=== PATIENT | female | born 1990 | race Two or more races ===

== ENCOUNTER → 2017-12-15 | Outpatient (CLI) | payer OTHER | LOC: FIMAGING 07:34 | PROVIDERS: ATTEND Obstetrics & Gynecology | DX: O09.812 Supervision of pregnancy resulting from assisted reproductive technology, second trimester (principal); O26.02 Excessive weight gain in pregnancy, second trimester; Z3A.21 21 weeks gestation of pregnancy ==

== ENCOUNTER → 2018-01-08 | Outpatient (CLI) | payer OTHER | LOC: FIMAGING 08:33 | PROVIDERS: ATTEND Obstetrics & Gynecology | DX: Z34.82 Encounter for supervision of other normal pregnancy, second trimester (principal); Z3A.24 24 weeks gestation of pregnancy ==

== ENCOUNTER 2018-02-20 08:02 | Emergency (ER) | payer OTHER ==
[2018-02-20 08:09] VITALS: BP 111/69
--- NOTE | 2018-02-20 08:21 | EDPHY ---
H & P Time Seen by Provider: 02/20/18 08:21 HPI/ROS: Chief complaint. Upper respiratory symptom HPI. 27-year-old female who is 29 weeks presents with 2 days of slight cough, nasal congestion and slight burning sore throat. No fever. No recent travel or known exposure to Infectious Disease. She does not have any abdominal pain or vaginal bleeding. No rash. No urinary symptoms. She is normally healthy other than low thyroid. Patient is 1/para 0. ROS 10 systems were reviewed and negative with the exception of the elements mentioned in the history of present illness Past Medical/Surgical History: Hypothyroid Social History: , nonsmoker, no alcohol Smoking Status: Never smoked Physical Exam: General Appearance: Alert well-developed female mild distress vitals are stable Eyes:[ Pupils equal and round no pallor or injection]. ENT, tympanic membranes are normal. Pharynx without injection. Mucous membranes are moist Patient and her refuse heart, lung, abdominal exam Musculoskeletal: [Neck is supple nontender.] Extremities [ symmetrical, full range of motion.] Psychiatric:[ Patient is oriented X 3, there is no agitation.] Constitutional: Initial Vital Signs Temperature (C) 36.5 C 02/20/18 08:06 Heart Rate 80 02/20/18 08:06 Respiratory Rate 17 02/20/18 08:06 Blood Pressure 111/69 02/20/18 08:06 O2 Sat (%) 97 02/20/18 08:06 O2 Delivery Mode Room Air Allergies/Adverse Reactions: No Known Allergies Allergy (Unverified 02/20/18 08:05) Home Medications: Medication Instructions Recorded Vits96/Iron Fum/Folic 02/20/18 Synthroid 02/20/18 Medical Decision Making ED Course/Re-evaluation: Uzbek consulting systems engineer is used. Assessment and discharge instructions and plan including criteria for return and importance of follow-up are translated through the consulting systems engineer Differential Diagnosis: I believe this is upper respiratory infection. No evidence for otitis media or pharyngitis. Unlikely this represents pneumonia Departure - Departure Disposition: Home, Routine, Self-Care Clinical Impression: Upper respiratory infection Qualifiers: URI type: unspecified URI Qualified Code(s): J06.9 - Acute upper respiratory infection, unspecified Condition: Good Instructions: Upper Respiratory Infection (ED) Additional Instructions: Drink plenty of fluids and stay hydrated. May use Tylenol for any fever. Avoid aspirin or ibuprofen Return for worsening symptoms. Recheck in 2-3 days if not improved Referrals: NONE *PRIMARY CARE P,. [Primary Care Provider] - As per Instructions Lainey Orona MD [[facility] [place] Primary Care Provider] - 2-3 days, if not improved
== END 2018-02-20 09:00 | disposition home or self-care (01) ==
DX: J06.9 Acute upper respiratory infection, unspecified (principal)

== ENCOUNTER 2018-02-22 12:34 | Emergency (ER) | payer OTHER ==
[2018-02-22 12:39] VITALS: BP 114/72
--- NOTE | 2018-02-22 12:58 | EDPHY ---
H & P Stated Complaint: sore throat and ear pain x 3 days, 28 weeks preg Time Seen by Provider: 02/22/18 12:45 HPI/ROS: CHIEF COMPLAINT: Throat and ears feel worse HISTORY OF PRESENT ILLNESS: 27-year-old female 28 weeks , , seen the ER 2 days ago for complaints of URI symptoms for the past 4 days, returns to the ER complaining of worsening sore throat and bilateral otalgia. No fever no chills. No change in voice. No respiratory complaints such as cough. No dyspnea. No chest pain. No abdominal pain. Baby moving as normal. No urinary complaints. No vaginal discharge or bleeding. No Headache. No nuchal rigidity REVIEW OF SYSTEMS: 10 systems reviewed and negative with the exception of the elements mentioned in the history of present illness PAST MEDICAL & SURGICAL HISTORY: 20 weeks SOCIAL HISTORY: nonsmoker PHYSICAL EXAM (Prior to examination, patient consented to physical exam, hands were washed and my usual and customary physical exam procedures followed) 1) GENERAL: Well-developed, well-nourished, alert and oriented. Appears to be in no acute distress. Exam with at bedside. 2) HEAD: Normocephalic, atraumatic 3) HEENT: Pupils equal, round, reactive to light bilaterally. Sclera anicteric. Nasopharynx, oropharynx, clear, no lesions. Moist Mucous membranes. No tonsillar enlargement or exudate. Posterior oropharynx is erythematous. right ear: Bulging erythematous tympanic membrane. Right external auditory canals clear. Right mastoid nontender non boggy. Left ear: Nonbulging non erythematous tympanic membrane with clear external auditory canal, left mastoid nontender non boggy. 4) NECK: Full range of motion, no meningeal signs. 5) LUNGS: Clear auscultation bilaterally, no wheezes, no rhonchi, no retractions. 6) HEART: Regular rate and rhythm, no murmur, no heave, no gallop. 7) ABDOMEN: No guarding, no rebound, no focal tenderness, negative McBurney's, negative Puckett's, negative Rovsing's, negative peritoneal sign, 8) MUSCULOSKELETAL: Moving all extremities, no focal areas of tenderness, no obvious trauma. No peripheral edema or discoloration. 9) BACK: No CVA tenderness, no midline vertebral tenderness, no fluctuance, no step-off, no obvious trauma, no visual or palpable abnormality. 10) SKIN: No rash, no petechiae. 11) Psychiatric: Patient is oriented X 3, there is no agitation. DIFFERENTIAL DIAGNOSIS: In no particular order including but not limited to strep pharyngitis, otitis media, otitis externa, mastoiditis, meningitis - Personal History LMP (Females 10-55): - Medical/Surgical History Hx Asthma: No Hx Chronic Respiratory Disease: No Hx Diabetes: No Hx Cardiac Disease: No Hx Renal Disease: No Hx Cirrhosis: No Hx Alcoholism: No Hx HIV/AIDS: No Hx Splenectomy or Spleen Trauma: No Other PMH: hypothyroid - Social History Smoking Status: Never smoked Constitutional: Initial Vital Signs Temperature (C) 36.5 C 02/22/18 12:36 Heart Rate 101 H 02/22/18 12:36 Respiratory Rate 18 02/22/18 12:36 Blood Pressure 114/72 02/22/18 12:36 O2 Sat (%) 97 02/22/18 12:36 O2 Delivery Mode Room Air Allergies/Adverse Reactions: No Known Allergies Allergy (Verified 02/22/18 12:35) Home Medications: Medication Instructions Recorded Vits96/Iron Fum/Folic 02/20/18 Synthroid 02/20/18 Azithromycin [Zithromax] 500 mg PO DAILY #1 packet 02/22/18 Medical Decision Making ED Course/Re-evaluation: I reviewed the patient's old medical records. Doubt meningitis. Does have evidence of otitis media without evidence of rupture of tympanic membrane. Will administer trial of azithromycin oral antibiotic. She has no urinary complaints and denies vaginal bleeding or discharge. Plan will be discharge, close follow-up with her OBGYN. She feels comfortable being discharged. All questions and concerns addressed by myself. Care of patient under supervision of secondary supervising physician Dr Crawford . Departure - Departure Disposition: Home, Routine, Self-Care Clinical Impression: Acute otitis media Qualifiers: Otitis media type: suppurative Laterality: right Recurrence: not specified as recurrent Spontaneous tympanic membrane rupture: without spontaneous rupture Qualified Code(s): H66.001 - Acute suppurative otitis media without spontaneous rupture of ear drum, right ear Condition: Good Instructions: Ear Infection (ED) Additional Instructions: Return to the emergency department immediately for change in breathing habits, change in voice, change in swallowing habits, change in mental status, or any other symptoms that concern you. Referrals: [facility],. [Clinic] - As per Instructions Prescriptions: Azithromycin [Zithromax] 500 mg PO DAILY #1 packet
== END 2018-02-22 13:08 | disposition home or self-care (01) ==
DX: H66.91 Otitis media, unspecified, right ear (principal); J02.9 Acute pharyngitis, unspecified; E03.9 Hypothyroidism, unspecified; Z3A.28 28 weeks gestation of pregnancy

== ENCOUNTER 2018-05-05 10:34 | Inpatient (IN) | payer OTHER ==
[2018-05-05] MEDS ORDERED: LR 1,000 ML IV PRN (16:01)
[2018-05-05] MEDS ORDERED: TERBUTALINE SULFATE 1 MG/ML VIAL IV PRN (16:01)
[2018-05-05] MEDS ORDERED: OXYTOCIN/RINGERS LACTATE 1,000 ML IV PRN (16:01)
[2018-05-05] MEDS ORDERED: OLIVE OIL 118 ML BTL MISC PRN (16:01)
[2018-05-05] MEDS ORDERED: AMMONIA AROMATIC 1 EACH AMP IH PRN (16:01)
[2018-05-05] MEDS ORDERED: MISOPROSTOL 200 MCG TAB PO PRN (16:01)
[2018-05-05] MEDS ORDERED: IBUPROFEN 600 MG TAB PO PRN (16:01)
[2018-05-05] MEDS ORDERED: LIDOCAINE 1% 300 MG/30 ML SDV SC PRN (16:01)
[2018-05-05] MEDS ORDERED: EPSOM SALT 454 GM TP PRN (16:01)
[2018-05-05 16:54] LABS: PLATELET COUNT 295 10^3/uL (150-400)
[2018-05-05] MEDS ORDERED: BUPIVACAINE 0.25% 10 ML SDV ONE ×2 (17:14→18:17)
[2018-05-05] MEDS ORDERED: PHENYLEPHRINE HCL 100 MCG/ML SYR ONE (17:50)
[2018-05-05] MEDS ORDERED: METOCLOPRAMIDE 10 MG/2 ML VIAL IVP PRN (18:54)
[2018-05-05] MEDS ORDERED: ONDANSETRON 4 MG/2 ML VIAL IVP PRN (18:54)
[2018-05-05] MEDS ORDERED: NALOXONE HCL 0.4 MG/ML INJ IVP PRN (18:54)
[2018-05-05] MEDS ORDERED: PHENYLEPHRINE HCL 100 MCG/ML SYR IVP PRN (18:54)
--- NOTE | 2018-05-05 18:57 | PREANESOB ---
Obstetric Pre-Anesthesia Info - General Info : 1 Para: 0 LIZ: 04/23/18 Gestational Age: 41 week(s) and 5 day(s) - Labor Status Indications for Labor Analgesia: Pain Control Labor Epidural: Proposed (Patient can not be examined without epidural secondary to pain.) Anesthesia Allergies/Adverse Reactions: Allergy/AdvReac Type Severity Reaction Status Date / Time No Known Allergies Allergy Verified 02/22/18 12:35 Home Medications: Medication Instructions Recorded Vits96/Iron Fum/Folic 02/20/18 Synthroid 02/20/18 Azithromycin [Zithromax] 500 mg PO DAILY #1 packet 02/22/18 Visit Medications: Generic Name Dose Route Start Last Admin Trade Name Freq PRN Reason Stop Dose Admin Ammonia (Aromatic Spirit) 1 each 05/05/18 16:01 Ammonia Aromatic IH 05/15/18 16:00 ONCE PRN Fainting Lactated Ringer's 1,000 mls @ 0 mls/hr 05/05/18 16:01 Lr IV 05/06/18 16:00 PRN PRN SEE PROTOCOL CONDITIONS Protocol Per Protocol Oxytocin/Lactated Ringer's 1,000 mls @ 0 mls/hr 05/05/18 16:01 Pitocin 20 Units/Lr (Premix) IV PRN PRN Post bleeding Per Protocol Lactated Ringer's 500 mls @ 0 mls/hr 05/05/18 19:00 Lr IV 11/01/18 18:59 CONT ZANE As Directed Ibuprofen 600 mg 05/05/18 16:01 Motrin PO ONCE PRN post , pain Lidocaine HCl 300 mg 05/05/18 16:01 Lidocaine Hcl 1% SC 11/01/18 16:00 ONCE PRN episiotomy Magnesium Sulfate 454 gm 05/05/18 16:01 Epsom Salt TP 11/01/18 16:00 Q1H PRN perineal discomfort Misoprostol 800 - 1,000 mcg 05/05/18 16:01 Cytotec PO 11/01/18 16:00 ONCE PRN Vaginal Atony/Bleeding [place] Oil 118 ml 05/05/18 16:01 Sweet Oil MISC 11/01/18 16:00 ONCE PRN perineal massage Terbutaline Sulfate 0.25 mg 05/05/18 16:01 Brethine IV 11/01/18 16:00 ONCE PRN Tachysystole Discontinued Medications Generic Name Dose Route Start Last Admin Trade Name Julio PRN Reason Stop Dose Admin Bupivacaine HCl Confirm 05/05/18 17:14 Sensorcaine 0.25% Sdv Administered 05/05/18 17:15 Dose 10 ml .ROUTE .STK-MED ONE Bupivacaine HCl Confirm 05/05/18 18:17 Sensorcaine 0.25% Sdv Administered 05/05/18 18:18 Dose 10 ml .ROUTE .STK-MED ONE Phenylephrine HCl Confirm 05/05/18 17:50 Neosynephrine Administered 05/05/18 17:51 Dose 1,000 mcg .ROUTE .STK-MED ONE - Vital Signs Height/Weight (Nursing): Height 153 cm Weight 89.358 kg Labs: 05/05/18 16:37 Patient ABO/Rh O POSITIVE 05/05/18 16:37
[2018-05-05] MEDS ORDERED: OLIVE OIL 118 ML BTL ONE (19:00)
[2018-05-05] MEDS ORDERED: LIDOCAINE 1% 300 MG/30 ML SDV ONE (19:00)
[2018-05-05] MEDS ORDERED: fentaNYL 2MCG/ML/BUP 0.1% RTU 100 ML EP SCH (19:00)
[2018-05-05] MEDS ORDERED: LR 500 ML IV SCH (19:00)
[2018-05-05] MEDS ORDERED: AMMONIA AROMATIC 1 EACH AMP IH ONE (19:01)
[2018-05-05] MEDS ORDERED: OXYTOCIN 10 UNIT/ML VIAL ONE (19:01)
[2018-05-05] MEDS ORDERED: TERBUTALINE SULFATE 1 MG/ML VIAL ONE (19:01)
[2018-05-05] MEDS ORDERED: MISOPROSTOL 200 MCG TAB ONE (19:01)
--- NOTE | 2018-05-05 19:16 | GHP ---
[f rep st] PREOP HISTORY AND PHYSICAL DATE OF ADMISSION: 05/05/2018 ADMITTING DIAGNOSIS: Intrauterine at 40 and 6/7 weeks' gestation with borderline oligo pro dromal contractions, for augmentation of labor. HISTORY OF PRESENT ILLNESS: The patient is a 27-year-old 1, para 0, who has an IVF . She had a embryo transfer on August 08, 2017, giving an EDC of 04/29/2018, and that was also con firmed by a 6-week ultrasound. She has had good care at [facility] since registra tion at 18 weeks' gestation. Her course is complicated by IVF . This was original ly a twin , but had a demise of 1 twin very early and has been a pierce since she was in our care. She has had level 2 normal ultrasound, echo was normal, and normal monitoring this p regnancy. She has hypothyroidism on Synthroid. She does not tolerate vaginal exams well. Had gener al anesthesia for her IVF conception. She began having increased back pain over the last c ouple nights. She was evaluated at [facility] today for her normal scheduled exam. She adam d a reactive category 1 nonstress test. Ultrasound showed borderline fluid with a total CHANI of 5.6, MVP was 3.9 cm, baby is cephalic. The patient was offered induction augmentation of labor versus exp ectant management. The patient wished to have induction of labor. However, patient has extreme diff iculty with vaginal exams. She was sent to labor and delivery rate, originally attempted to do a vag inal exam with nitrous to quantitate her cervical dilation and make a plan for induction. She was no t able to tolerate this after several attempts, so we decided to admit for induction of labor. She r eceived an epidural, and I was now successfully able to examine her. She is 4 cm, 90%, -2 with a bul ging bag of water. Baby is cephalic. She has had irregular contractions during the afternoon, so eulogio keyes is in probably early prodromal labor. PAST MEDICAL HISTORY: The patient has no past medical history. She is a primigravida. PAST GYNECOLOGICAL HISTORY: She had menarche at age 15, interval irregular every 2-3 months, length 7 days. She has irregular cycles. Does not tolerate intercourse because of dyspareunia. She concei manisha this with her 2nd round of IVF, and she was under anesthesia for both her egg retrieval as well as her transfer. No other gynecological problems. She has had Pap smears under anesthesia. They have been negative. PAST SURGICAL HISTORY: No surgical history. ALLERGY HISTORY: She has no known drug allergies. CURRENT MEDICATIONS: Include Synthroid 50 mcg daily on weekdays, 75 on weekends. She is on vitamins with DHA. SOCIAL HISTORY: She is to her , Abiel. She is a [id number] mom. He is a studen t at . They are from [place]. Uzbek is their primary language. She uses him as a translato r and she declines a supplemental greenhouse grower. LABORATORY DATA: She is O positive. Antibody negative. RPR nonreactive. Rubella immune. Hepatiti s negative. HIV negative. Standard panel normal. TSH normal. Urine drug screen negative. Pap nor mal in June 2017 under anesthesia. Gonorrhea and chlamydia negative. Verifi was declined. Pre-gen etic screening was negative. AFP was negative. 1-hour GTT 156, 3-hour GTT was negative, and she is G BS negative, and varicella immune. FAMILY HISTORY: Noncontributory. OBJECTIVE: Today she is afebrile. Vital signs are stable. heart tones are 140s, reactive, mo derate variability, category 1-2. Has had episodes of variable irregular contractions. Cervix 4 cm, 90%, -2. The patient will be admitted for active labor. May need labor augmentation with Pitocin and/or AROM. I will let the patient rest after her original exam and her epidural, and will reassess in a couple hours. status is reassuring. /[id number]/MODL
--- NOTE | 2018-05-05 22:35 | OBPROG ---
Labor Progress Note Assessment/Plan: Assessment: 27 y/o @ 40 6/7 weeks in labor now comfortable with her epidural Plan: Good cervical change and overall status is reassuring. 05/05/18 22:30 Subjective/Intrapartum Course: 05/05/18 22:27 Pt is comfortable with her epidural. She has been resting. Objective: 05/05/18 16:37 Patient ABO/Rh O POSITIVE 05/05/18 16:37 - SVE Dilation (cm): 6 Effacement (%): 90 Station: -1 Membranes: AROM Amniotic Fluid Color: Clear - Contraction Pattern Assessment Current Contraction Pattern: Regular (Q 3-4) - FHR Assessment Lama FHR (bpm): 140 FHR Pattern Variability: Moderate FHR Category: 1 (occ early decelerations) - Procedures Non-surgical Procedures: Amniotomy - AP Antepartum Course: 05/05/18 22:28 IVF Hyporhyroidism Oxytocin Orders Assessment - Pre-Induction/Augmentation Assessment Gestational Age: 41 week(s) and 5 day(s) ICD10 Worksheet Patient Problems: Problems Problem Status Onset Normal labor Acute - ICD10 Problem Qualifiers (1) Normal labor
[2018-05-06] MEDS ORDERED: LR 500 ML IV PRN (01:04)
[2018-05-06] MEDS ORDERED: OXYTOCIN/RINGERS LACTATE 500 ML IV SCH (01:30)
[2018-05-06] MEDS ORDERED: NS IV ONE (08:10)
[2018-05-06] MEDS ORDERED: AZITHROMYCIN IV ONE (08:10)
[2018-05-06] MEDS ORDERED: ceFAZolin 2 GM/DEXTROSE 100 ML IV ONE (08:12)
--- NOTE | 2018-05-06 08:27 | OBPROG ---
Labor Progress Note Assessment/Plan: Assessment: 27 y/o @ 41 weeks in labor now with intolerance to labor, prolonged second stage of labor and arrest of descent Plan: Reviewed the strip revealing intermittent late decels since 0230 this am when pt progressed to complete Pt has been pushing for the last 3 hours with minimal descent of head; upon exam this am suspect OP presentation Pitocin was turned off as soon as I saw the strip and there continues to be recurrent late decels Recommend proceeding to OR for PCS secondary to intolerance to labor, prolonged second stage of labor and arrest or descent Pt and declined using an community relations director to go over surgical consents Discussed R/B/A of PCS including but not limited to bleeding, infection and damage to surrounding organs Pt is aware of the risks and wants to proceed with surgery at this time Abx sr risk management consultant to OR; will add Azithro since pt has been ruptured to decrease risk of infection SCDs for DVT prophylaxis 05/06/18 08:31 Subjective/Intrapartum Course: 05/05/18 22:27 Pt is comfortable with her epidural. She has been resting. 05/06/18 08:28 Pt has been pushing and feels pain in her back. She is also c/o feeling dizzy. Objective: 05/05/18 16:37 Patient ABO/Rh O POSITIVE 05/05/18 16:37 - SVE Dilation (cm): 10 Effacement (%): 100 Station: +1 (with caput; suspect OP) Membranes: AROM Amniotic Fluid Color: Clear - Contraction Pattern Assessment Current Contraction Pattern: Regular (Q 3-4) - FHR Assessment Lama FHR (bpm): 160 FHR Pattern Variability: Moderate FHR Category: 2 (Recurrent late decels with kenya to 120 bpm x 60 seconds) - Procedures Non-surgical Procedures: Amniotomy - AP Antepartum Course: 05/05/18 22:28 IVF Hypothyroidism Oxytocin Orders Assessment - Pre-Induction/Augmentation Assessment Gestational Age: 41 week(s) and 5 day(s) ICD10 Worksheet Patient Problems: Problems Problem Status Onset Normal labor Acute
[2018-05-06] MEDS ORDERED: AZITHROMYCIN IV 500 MG in NS 250 ML IV ONE ×2 (08:28→08:30)
[2018-05-06] MEDS ORDERED: morphINE PF 5 MG/10 ML INJ ONE (08:40)
[2018-05-06] MEDS ORDERED: fentaNYL 100 MCG/2 ML INJ ONE (08:40)
[2018-05-06] MEDS ORDERED: SODIUM BICARBONATE 10 MEQ/10 ML SYR IVP ONE (08:42)
[2018-05-06] MEDS ORDERED: LIDO/EPI 2% **for epidural** 20 ML SDV ONE (08:42)
[2018-05-06] MEDS ORDERED: CITRIC ACID/SODIUM CITRATE 30 ML UDCUP PO ONE (09:16)
[2018-05-06] MEDS ORDERED: LABETALOL HCL 5 MG/ML 20 ML MDV IVP PRN (09:16)
[2018-05-06] MEDS ORDERED: MEPERIDINE 25 MG/0.5 ML AMP IVP PRN (09:16)
[2018-05-06] MEDS ORDERED: METOCLOPRAMIDE 10 MG/2 ML VIAL IVP PRN (09:16)
[2018-05-06] MEDS ORDERED: OXYCODONE/APAP 5/325 TAB PO PRN ×2 (09:16→10:01)
[2018-05-06] MEDS ORDERED: fentaNYL 100 MCG/2 ML INJ IVP PRN (09:16)
[2018-05-06] MEDS ORDERED: ONDANSETRON 4 MG/2 ML VIAL IVP PRN (09:16)
[2018-05-06] MEDS ORDERED: HYDROCODONE/APAP 5/325 TAB PO PRN ×2 (09:16→10:01)
[2018-05-06] MEDS ORDERED: PHENYLEPHRINE HCL 100 MCG/ML SYR IVP PRN (09:16)
[2018-05-06] MEDS ORDERED: NALOXONE HCL 0.4 MG/ML INJ IVP PRN (09:17)
[2018-05-06] MEDS ORDERED: DEXAMETHASONE 4 MG/ML VIAL ONE (09:28)
[2018-05-06] MEDS ORDERED: ONDANSETRON 4 MG/2 ML VIAL ONE (09:29)
--- NOTE | 2018-05-06 09:55 | OBDEL ---
Info Type: Primary Presentation at Delivery: Vertex (Direct OP) L&D Analgesia/Anesthesia Type: Epidural GBS+: No Intrapartum Medications: Generic Name Dose Route Start Last Admin Trade Name Freroni PRN Reason Stop Dose Admin Lactated Ringer's 1,000 mls @ 0 mls/hr 05/05/18 16:01 05/06/18 02:16 Lr IV 05/06/18 16:00 1,000 mls PRN PRN Administration SEE PROTOCOL CONDITIONS Protocol Per Protocol Fentanyl/Bupivacaine HCl 100 mls @ 0 mls/hr 05/05/18 19:00 05/06/18 05:14 Fentanyl/Bupivacaine/Ns 2 Mcg/Ml 0.1% (Premix EP 05/15/18 18:59 100 mls CONT ZANE Administration Protocol As Directed Oxytocin/Lactated Ringer's 500 mls @ 0 mls/hr 05/06/18 01:30 05/06/18 02:12 Pitocin 30 Units/Lr (Premix) IV 11/02/18 01:29 500 mls CONT ZANE Administration Protocol Per Protocol Discontinued Medications Generic Name Dose Route Start Last Admin Trade Name Julio PRN Reason Stop Dose Admin Citric Acid/Sodium Citrate 30 ml 05/06/18 09:16 05/06/18 09:32 Bicitra PO 05/06/18 09:17 Not Given ONCE ONE Cefazolin Sodium/Dextrose 100 mls @ 200 mls/hr 05/06/18 08:12 05/06/18 08:27 Ancef IV 05/06/18 08:41 100 mls ONCALL ONE Administration Protocol Azithromycin 500 mg/ Sodium 255 mls @ 250.068 mls/hr 05/06/18 08:30 05/06/18 08:48 Chloride IV 05/06/18 09:31 255 mls ONCE ONE Administration Protocol - Care Provider Damaged Freight Inspector/SALESPERSON BURIAL NEEDS: Natalia Reed - Hospital Course Intrapartum: 05/05/18 22:27 Pt is comfortable with her epidural. She has been resting. 05/06/18 08:28 Pt has been pushing and feels pain in her back. She is also c/o feeling dizzy. Indications for Delivery: Spontaneous Labor Vaginal Delivery - Labor and Delivery Amniotic Fluid Color: Clear Non-surgical Procedures: Amniotomy Cord Gases: Cord Gases Cord Blood PCO2 44.7 mmHg (37-60) 05/06/18 09:08 Cord Base Excess -6.8 mEq/L (-13.6--3.2) 05/06/18 09:08 Cord ABG pH 7.27 (7.10-7.37) 05/06/18 09:08 Cord VBG pH 7.29 (7.20-7.42) 05/06/18 09:08 Operative Report - Delivery Pre-op Diagnoses: IUP @ 41 weeks with intolerance to labor, prolonged second stage of labor and arrest of descent Post-op Diagnoses: IUP @ 41 weeks with intolerance to labor, prolonged second stage of labor and arrest of descent. Meconium-stained fluid. Direct OP History of Prior Section: No Number of Prior Sections: 0 Nulliparous Prior to Delivery: Yes Indications for Current Section: Arrest of Descent, Non-reas. Status, Other (Specify) (prolonged second stage of labor) Procedure: Unscheduled Surgeon: Laverne Heath Pneumatic Tester Mechanic: Reena Walls Anesthesiologist: Theo Patricia Complications: None Findings: A viable male infant born at 0908 in direct OP presentation with 8 and 9 Apgars. No nuchal cord. Thick meconium noted. Cord clamped x 2 and cut and to [facility]. Cord gases as well as bloods obtained. Grossly normal appearing uterus, tubes and ovaries. No complications. Pt nai well. Specimen(s)/Path: Other (Specify) (none) IV Fluid (ml): 600 EBL: 800cc UO: 50 cc concentrated urine Cord Gases: Cord Gases Cord Blood PCO2 44.7 mmHg (37-60) 05/06/18 09:08 Cord Base Excess -6.8 mEq/L (-13.6--3.2) 05/06/18 09:08 Cord ABG pH 7.27 (7.10-7.37) 05/06/18 09:08 Cord VBG pH 7.29 (7.20-7.42) 05/06/18 09:08 Data LIZ: 04/23/18 Gestational Age: 41 week(s) and 6 day(s) Lama Delivery Date: 05/06/18 Delivery Time: 09:08 Sex of Infant: Male Score (1 Min): 8 Score (5 Min): 9 ICD10 Worksheet Patient Problems: Problems Problem Status Onset Arrest of descent, delivered, current hospitalization Acute Direct occiput posterior presentation of fetus Acute intolerance to labor, delivered, current hospitalization Acute Meconium in amniotic fluid Acute Normal labor Acute Status post primary low transverse section Acute - ICD10 Problem Qualifiers (1) intolerance to labor, delivered, current hospitalization (2) Arrest of descent, delivered, current hospitalization (3) Status post primary low transverse section (4) Meconium in amniotic fluid
--- NOTE | 2018-05-06 09:57 | POSTANESTH ---
Post Anesthetic Evaluation Cardiovascular Status: Normal, Stable Respiratory Status: Normal, Stable Level of Consciousness/Mental Status: Can Participate in Eval Pain Control: Adequate, Prn Tx Ordered Nausea/Vomiting Control: Adequate, Prn Tx Ordered Complications Possibly Related to Anesthesia: None Noted
[2018-05-06] MEDS ORDERED: MAGNESIUM HYDROXIDE 30 ML UDCUP PO PRN (10:01)
[2018-05-06] MEDS ORDERED: LACTULOSE 20 GM/30 ML UDCUP PO PRN (10:01)
[2018-05-06] MEDS ORDERED: POLYETHYLENE GLYCOL 3350 17 GM PKT PO PRN (10:01)
[2018-05-06] MEDS ORDERED: BISACODYL 10 MG SUPP PR PRN (10:01)
[2018-05-06] MEDS ORDERED: SIMETHICONE 80 MG TAB CHEW PO PRN (10:01)
[2018-05-06] MEDS: KETOROLAC 30 MG/1 ML SDV IVP SCH ×2 (11:27→18:06)
[2018-05-06] MEDS: IBUPROFEN 600 MG TAB PO SCH ×3 (14:57→23:38)
[2018-05-06] MEDS: ACETAMINOPHEN 325 MG TAB PO SCH (15:14)
--- NOTE | 2018-05-06 23:41 | GOP ---
[f rep st] OPERATIVE REPORT DATE OF OPERATION: 05/06/2018 SURGEON: Laverne Heath DO CLINICAL INFORMATICS MANAGER: Reena Walls CNM. ANESTHESIA: Epidural. ANESTHESIOLOGIST: Theo Patricia MD. PREOPERATIVE DIAGNOSIS: 1. Intrauterine at 41 weeks. 2. intolerance to labor. 3. Prolonged 2nd stage of labor. 4. Arrest of descent. POSTOPERATIVE DIAGNOSIS: 1. Intrauterine at 41 weeks. 2. intolerance to labor. 3. Prolonged 2nd stage of labor. 4. Arrest of descent. 5. Meconium-stained fluid. 6. Direct occiput posterior. PROCEDURE PERFORMED: Primary low transverse section. FINDINGS: Viable male born at 0908, in direct occiput posterior presentation with 8 and 9 Apgars. Thick meconium was noted upon delivery. No nuchal cord. There was difficulty delivering the head secondary to it being wedged in the pelvis after pushing for 3 hours. Cord clamped x2, cut and to immediately handed to awaiting SUPERVISOR GROWER. Cord gases, as well as cord blood were obtained. Placenta delivered manually intact with a 3-vessel cord. Grossly normal-appearing uterus, tubes, and ovaries bilaterally. ESTIMATED BLOOD LOSS: 800 cc. INDICATIONS: The patient is a 27-year-old, G1, P0, Polish speaking female, who presented at 40 and 6/7 weeks for induction of labor. The patient was seen in the office, and had a reactive NST and an ultrasound that revealed an CHANI with borderline oligohydramnios at 5.6cm. The patient declined a vaginal exam in the office. She was sent over to Labor and Delivery for an exam with nitrous and to start induction process. She was not able to tolerate a cervical exam with nitrous and received an epidural. She was finally comfortable and on exam was found to be 4 cm dilated and 80% effaced. The patient was noted to be having irregular contractions and was augmented with Pitocin. The patient then progressed to complete and pushed for 3 hours with minimal descent of the head. Shortly after progressing to 10 cm, there were intermittent late decels noted and as the patient continued to push there became recurrent late decels. On exam, the baby was suspected to be direct OP. Discussed proceeding to the operating room for a primary secondary to intolerance to labor, prolonged 2nd stage of labor and arrest of descent. Discussed risks, benefits, and alternatives of the procedure including but not limited to, bleeding, infection, and damage to surrounding organs. The patient understands all risks at this time and was properly consented. DESCRIPTION OF PROCEDURE: The patient was taken to the operating room where her epidural was dosed and found to be adequate. She was then prepped and draped in dorsal supine position with a leftward tilt. Damon catheter was then placed in her bladder and noted to be blood-tinged. After adequate anesthesia was assured and a WHO time-out was performed, a Pfannenstiel skin incision was then made with a scalpel. Incision was carried down to the underlying layer of fascia using the Bovie. The fascia was then incised in the midline. The fascial incision was then extended laterally with Cervantes scissors. Superior aspect of the fascial incision was then grasped with Austin clamps, elevated, and the rectus muscles were dissected off sharply. In a similar fashion, the inferior aspect of fascial incision was then grasped with Austin clamps, elevated, and rectus muscles dissected off sharply. Rectus muscles were then in the midline. Peritoneum was identified and entered bluntly. Peritoneal incision was then extended superiorly and inferiorly with good visualization of the bladder. Bladder blade was then inserted. Vesicouterine peritoneum was visualized as well as lower uterine segment. A transverse incision was then made with a scalpel and extended anteriorly and posteriorly bluntly. There was thick meconium noted upon entry into the uterine cavity. There was difficulty delivering the head secondary to it being wedged inside the pelvis. At this time, a nurse placed her hand inside patients vagina to help push the head up outside the pelvis. The occiput was finally able to be grasped and the 's head was brought up outside the pelvis and toward the uterine incision. With fundal pressure, the infant was then delivered. The cord was clamped x2 and cut and the infant was immediately handed over the nurse practitioner. Cord gases, as well as cord bloods were obtained and sent. Placenta was then removed manually intact with 3-vessel cord. The uterus was unable to be exteriorized at this time. It was cleared of all clots and debris. The uterine incision was then repaired with 0 Vicryl in a running, locked fashion. Hemostasis was noted. A 2nd imbricating layer of suture was performed with 0 Vicryl and again hemostasis was assured, The gutters were then cleared of all clots and debris. Reinspection of the uterine incision assured hemostasis. Rectus muscles were approximated with 2-0 Vicryl in inverted mattress fashion. The fascia was then closed with 0 Vicryl in a running fashion. The skin was then closed with 4-0 Vicryl on a Stephen needle. Patient tolerated the tolerated procedure well. There were no complications. Sponge, lap, needle, and instrument counts were correct x2. The patient was then sent to recovery room in good condition. Along with antibiotics production control specialist to operating room 2 g of Ancef, the patient was given 500 g of Zithromax for being previously ruptured prior to the operating room. INTRAVENOUS FLUIDS: 600 cc in the OR. Patient received about 2 L prior to coming to the OR. URINE OUTPUT: 50 cc of blood tinged urine. /[id number]/MODL MTDD
[2018-05-07] MEDS: KETOROLAC 30 MG/1 ML SDV IVP SCH ×2 (00:29→07:37)
[2018-05-07] MEDS: SENNOSIDES/DOCUSATE SODIUM TAB PO SCH ×2 (00:29→12:35)
[2018-05-07] MEDS: LEVOTHYROXINE 50 MCG TAB PO SCH (07:24)
[2018-05-07] MEDS: IBUPROFEN 600 MG TAB PO SCH ×4 (07:31→22:55)
[2018-05-07] MEDS: ACETAMINOPHEN 325 MG TAB PO SCH ×5 (07:31→22:55)
--- NOTE | 2018-05-07 16:48 | PDPAINCON ---
Pain Management Consultation Patient referred by : Ivana - Subjective Pain is: under control Activity: able to ambulate - Objective Technique: spinal opioid (epidural morphine for C/S) Continuous infusion: morphine Vital signs: stable - Assessment/Plan Assessment/Plan: pain well-controlled, continue current mgmt (Pt doing well s/p C/S with epidural. No headache, no back pain, regained full motor and sensory of lower extremites.)
--- NOTE | 2018-05-07 21:57 | OBPP ---
Progress Note Assessment/Plan: Assessment: POD 1 s/p primary c/s for intol --LATE NOTE -- PT SEEN AND EVALUATED AT 19 :00 anemia - will start iron Plan: Routine care. start iron. 05/07/18 21:18 Subjective/ Course: 05/07/18 21:57 Pt doing well - husb translating for her -- feeling heavy in lower abd -- has not been taking anything other than ibu/tyl. baby is working on BF. urinating fine. bld is lessening. Has been UOB several times Objective: 05/07/18 08:00 Patient ABO/Rh O POSITIVE 05/05/18 16:37 Temp Pulse Resp BP Pulse Ox 36.7 C 93 16 95/65 L 94 05/07/18 16:00 05/07/18 16:00 05/07/18 16:00 05/07/18 16:00 05/07/18 16:00 Uterine Position/Fundal Height: Umbilicus -1 Uterine Tone: Firm Physical Exam - Physical Exam Abdomen: non-tender (approp post op tenderness), soft, dressing (drsg still in place intact... old brown area that was marked has not extended) Extremities: non-tender, pedal edema (moderate) Skin: normal color, warm/dry Neuro/Psych: alert, normal mood/affect
[2018-05-08] MEDS: SENNOSIDES/DOCUSATE SODIUM TAB PO SCH ×2 (01:35→10:51)
[2018-05-08] MEDS: oxyCODONE IR 5 MG TAB PO PRN ×4 (03:20→22:38)
[2018-05-08] MEDS: IBUPROFEN 600 MG TAB PO SCH ×4 (05:42→23:12)
[2018-05-08] MEDS: LEVOTHYROXINE 50 MCG TAB PO SCH (05:42)
[2018-05-08] MEDS: ACETAMINOPHEN 325 MG TAB PO SCH ×4 (05:42→23:11)
[2018-05-08] MEDS: FERRO-SEQUELS 65 MG TAB.ER PO SCH (10:00)
--- NOTE | 2018-05-08 14:38 | OBPP ---
Progress Note Assessment/Plan: Assessment: 27 y/o P1 s/p primary LTCS for intolerance POD #2 Anemia Plan: Routine pp/postop care Daily iron Plan d/c tomorrow 05/08/18 15:41 Subjective/ Course: 05/07/18 21:57 Pt doing well - husb translating for her -- feeling heavy in lower abd -- has not been taking anything other than ibu/tyl. baby is working on BF. urinating fine. bld is lessening. Has been UOB several times 05/08/18 15:44 Doing well - per translating. Passing gas, vaginal bleeding wnl, tolerating activity, reg diet. Pain well controlled with oral pain meds. going fine. Objective: 05/07/18 08:00 Patient ABO/Rh O POSITIVE 05/05/18 16:37 Temp Pulse Resp BP Pulse Ox 36.4 C 95 15 95/62 L 96 05/08/18 08:00 05/08/18 08:00 05/08/18 08:00 05/08/18 08:00 05/08/18 08:00 Uterine Position/Fundal Height: Umbilicus -1 Uterine Tone: Firm Physical Exam - Physical Exam EENT: PERRL/EOMI Neck: full range of motion Respiratory: normal breath sounds Cardiac/Chest: regular rate, rhythm Abdomen: normal bowel sounds, flatus, incision (well approximated - healing well ) Extremities: normal range of motion Skin: normal color Neuro/Psych: alert, normal mood/affect, oriented x 3
[2018-05-09] MEDS: SENNOSIDES/DOCUSATE SODIUM TAB PO SCH ×2 (00:21→13:48)
[2018-05-09] MEDS: LEVOTHYROXINE 50 MCG TAB PO SCH (05:14)
[2018-05-09] MEDS: ACETAMINOPHEN 325 MG TAB PO SCH ×4 (05:14→18:38)
[2018-05-09] MEDS: IBUPROFEN 600 MG TAB PO SCH ×3 (05:14→18:38)
[2018-05-09] MEDS: FERRO-SEQUELS 65 MG TAB.ER PO SCH (12:44)
--- NOTE | 2018-05-09 14:58 | OBPP ---
Progress Note Assessment/Plan: Assessment: 27 y/o POD #3 s/p LTCS secondary to arrest of descent and intolerance to labor Plan: Continue Ibuprofen, Tylenol and Oxy for pain management. support and routine POC. D.c home tomorrow. 05/05/18 22:30 05/09/18 14:57 Subjective/ Course: 05/07/18 21:57 Pt doing well - husb translating for her -- feeling heavy in lower abd -- has not been taking anything other than ibu/tyl. baby is working on BF. urinating fine. bld is lessening. Has been UOB several times 05/08/18 15:44 Doing well - per translating. Passing gas, vaginal bleeding wnl, tolerating activity, reg diet. Pain well controlled with oral pain meds. going fine. 05/09/18 14:55 Pt reports doing well, through translation. She reports good pain control with Ibuprofen, Tylenol and Oxy. She is ambulating, voiding and had a + BM. She has min lochia. She is working on breast feeding a few times/ day but is also supplementing with formula. She would like to stay today for extra help. Objective: 05/07/18 08:00 Patient ABO/Rh O POSITIVE 05/05/18 16:37 Temp Pulse Resp BP Pulse Ox 36.2 C 82 16 97/73 L 97 05/09/18 08:31 05/09/18 08:31 05/09/18 08:31 05/09/18 08:31 05/09/18 08:31 Uterine Position/Fundal Height: Umbilicus -2 Uterine Tone: Firm Physical Exam - Physical Exam General Appearance: alert, no apparent distress Neck: non-tender, full range of motion, supple Respiratory: chest non-tender, lungs clear, normal breath sounds Cardiac/Chest: regular rate, rhythm Abdomen: normal bowel sounds, incision (c/d/i) Extremities: swelling (tr), Lilly's sign (neg)
[2018-05-10] MEDS: SENNOSIDES/DOCUSATE SODIUM TAB PO SCH ×2 (00:11→08:24)
[2018-05-10] MEDS: ACETAMINOPHEN 325 MG TAB PO SCH ×3 (00:23→12:14)
[2018-05-10] MEDS: IBUPROFEN 600 MG TAB PO SCH ×3 (00:23→12:16)
[2018-05-10] MEDS: LEVOTHYROXINE 50 MCG TAB PO SCH (05:52)
[2018-05-10 08:14] VITALS: BP 99/68
[2018-05-10] MEDS: oxyCODONE IR 5 MG TAB PO PRN (08:24)
[2018-05-10] MEDS: FERRO-SEQUELS 65 MG TAB.ER PO SCH (08:25)
--- NOTE | 2018-05-10 09:09 | OBPP ---
Progress Note Assessment/Plan: Assessment:27 POD#4 Primary LTCS - doing well. Plan: DC home. Std postop C/S instructions reviewed. See dc instructions. Jazmin Mi MD, FACOG [facility] 05/10/18 09:05 Subjective/ Course: 05/07/18 21:57 Pt doing well - husb translating for her -- feeling heavy in lower abd -- has not been taking anything other than ibu/tyl. baby is working on BF. urinating fine. bld is lessening. Has been UOB several times 05/08/18 15:44 Doing well - per translating. Passing gas, vaginal bleeding wnl, tolerating activity, reg diet. Pain well controlled with oral pain meds. going fine. 05/09/18 14:55 Pt reports doing well, through translation. She reports good pain control with Ibuprofen, Tylenol and Oxy. She is ambulating, voiding and had a + BM. She has min lochia. She is working on breast feeding a few times/ day but is also supplementing with formula. She would like to stay today for extra help. 05/10/18 09:07 Pt doing well, translating. Is pumping and using formula. Pain well controlled with po pain meds - does not have any at home. She is ambulating and voiding without difficulty, min lochia. Objective: 05/07/18 08:00 Patient ABO/Rh O POSITIVE 05/05/18 16:37 Temp Pulse Resp BP Pulse Ox 36.1 C 80 14 99/68 L 96 05/10/18 08:14 05/10/18 08:14 05/10/18 08:14 05/10/18 08:14 05/10/18 08:14 gen - pleasant, NAD CV - RRR chest - CTAB abd - soft, + BS, fundus firm at u inc - C/D/I no dressing ext - no calf tenderness, trace edema Uterine Position/Fundal Height: At Umbilicus Uterine Tone: Firm
--- NOTE | 2018-05-10 09:18 | OBGCSDC ---
General Delivery Information - General Info : 1 Para: 1 Abortions: 0 Type: Primary L&D Analgesia/Anesthesia Type: Epidural, Spinal Admission Date: 05/05/18 Labs: Patient ABO/Rh O POSITIVE 05/05/18 16:37 Hct 26.8 % (38.0-47.0) L 05/07/18 08:00 - Hospital Course Antepartum: 05/05/18 22:28 IVF Hypothyroidism Intrapartum: 05/05/18 22:27 Pt is comfortable with her epidural. She has been resting. 05/06/18 08:28 Pt has been pushing and feels pain in her back. She is also c/o feeling dizzy. : 05/07/18 21:57 Pt doing well - husb translating for her -- feeling heavy in lower abd -- has not been taking anything other than ibu/tyl. baby is working on BF. urinating fine. bld is lessening. Has been UOB several times 05/08/18 15:44 Doing well - per translating. Passing gas, vaginal bleeding wnl, tolerating activity, reg diet. Pain well controlled with oral pain meds. going fine. 05/09/18 14:55 Pt reports doing well, through translation. She reports good pain control with Ibuprofen, Tylenol and Oxy. She is ambulating, voiding and had a + BM. She has min lochia. She is working on breast feeding a few times/ day but is also supplementing with formula. She would like to stay today for extra help. 05/10/18 09:07 Pt doing well, translating. Is pumping and using formula. Pain well controlled with po pain meds - does not have any at home. She is ambulating and voiding without difficulty, min lochia. Vaginal - Diagnosis Amniotic Fluid Color: Clear - Procedures Non-surgical Procedures: Amniotomy - Delivery Providers Surgeon: Laverne Heath Idea Worker: Reena Walls Anesthesiologist: Theo Patricia - Delivery Number of Prior Sections: 0 Indications for Current Section: Arrest of Descent, Non-reas. Status, Other (Specify) (prolonged second stage of labor) Non-surgical Procedures: Amniotomy Surgical Procedures: Unscheduled Intra-op Complications: None EBL: 800cc UO: 50 cc concentrated urine [place] Data LIZ: 04/23/18 Gestational Age: 42 week(s) and 3 day(s) [place] Delivery Date: 05/06/18 Delivery Time: 09:08 Sex of Infant: Female [place] Weight (gm): 3282 g Score (1 Min): 8 Score (5 Min): 9 Discharge Information - Discharge Information Prescriptions: oxyCODONE IR [Oxycodone Ir (*)] 5 - 10 mg PO Q4HRS PRN #30 tab PRN Reason: Pain, Severe Able To Take Po Acetaminophen [Tylenol 325mg (*)] 650 mg PO Q6H #50 tab Ibuprofen [Motrin (*)] 600 mg PO Q6H #30 tab Iron/Vit C/Docusate [Hao-Sequels 65 mg (*)] 1 each PO DAILY 30 Days #30 tab.er Condition: Good Instruction/Follow Up: See Instruction Sheet, Two Weeks, Six Weeks
== END 2018-05-10 14:20 | disposition home or self-care (01) | DRG 788 ==
LOC: FLD 10:34 → OBSVTOIN 15:16 → FOB 05-06 11:40
PROVIDERS: ADMIT Obstetrics & Gynecology; ATTEND Hospitalist
PROC: 3E033VJ Introduction of Other Hormone into Peripheral Vein, Percutaneous Approach (ICD-10-PCS; 2018-05-05)
PROC: 10D00Z1 Extraction of Products of Conception, Low, Open Approach (ICD-10-PCS; principal; 2018-05-06)
PROC: 10907ZC Drainage of Amniotic Fluid, Therapeutic from Products of Conception, Via Natural or Artificial Opening (ICD-10-PCS; 2018-05-06)
DX: O48.0 Post-term pregnancy (principal); O31.13X0 Continuing pregnancy after spontaneous abortion of one fetus or more, third trimester, not applicable or unspecified; O32.8XX0 Maternal care for other malpresentation of fetus, not applicable or unspecified; O76 Abnormality in fetal heart rate and rhythm complicating labor and delivery; O63.1 Prolonged second stage (of labor); O99.280 Endocrine, nutritional and metabolic diseases complicating pregnancy, unspecified trimester; E03.9 Hypothyroidism, unspecified; Z37.0 Single live birth; Z3A.41 41 weeks gestation of pregnancy
CPT/HCPCS: J0456; J0690; J1100; J1885; J2274; J2370; J2405; J2590; J3010; J3105